=== PATIENT | male | born 1960 | race Caucasian/White ===

== ENCOUNTER 2020-10-21 08:46 | Emergency (ER) | payer MEDICAID, SELFPAY ==
[2020-10-21 08:55] VITALS: BP 162/75; PULSE 76; RESP 15; TEMP 36.6; O2SAT 96
--- NOTE | 2020-10-21 09:12 | ED.GENADUL_ITS ---
Discharge Plan Disposition Patient Disposition: HOME Condition: Stable Discharge Details Clinical Impression: Tick bite of buttock ED Provider: Enrique Juárez Home Meds and New Rx's Prescriptions: New doxycycline hyclate 100 mg capsule 100 mg PO BID Qty: 20 RF: 0 Discharge Instructions Instructions: Tick Bite (ED) Additional Instructions: At this time difficult to say whether this is a localized cellulitis versus early erythema migrans. Either way, we will treat you with doxycycline for the next 10 days, if your blood test results positive you may need to be placed on the doxycycline for a longer duration. [id number] medication such as Tylenol and/or Motrin for symptomatic control. Warm compresses every 2 hours for 20 minutes. Please watch for new or worsening symptoms and return to the ER for any concerns. Doxycycline it may cause some sun sensitivity, be sure to avoid direct sunlight, wear a hat, sunblock, etc. I am placing you on the care management list to help expedite outpatient primary care follow-up. Medical Decision Making 60-year-old gentleman presents status post a tick bite 16 days ago, now with a rash at the site of the bite. Clinically I am more suspicious of a localized cellulitis and a true erythema migrans rash. We discussed options. Will obtain a tickborne panel now and I will initiate 10 days worth of doxycycline which would cover for potential cellulitis versus tickborne disease. If his blood test results are positive he may need to extend his antibiotic therapy. There is no pointing abscess, nothing for emergent I&D at this time. Patient is comfortable with this plan and has no additional questions or concerns. HPI General Mode of arrival: ambulatory . Date/Time Provider Initiated Documentation: 10/21/20 08:48 . Limitations to Documentation: no limitations . Information obtained by: patient . HPI Narrative: This is a 60-year-old gentleman, denies significant past medical history, presenting for a tick bite. Patient states 16 days ago he noticed a tick bite, embedded, to his left buttocks. The tick was not engorged. He was able to pull the tick off without difficulty, unsure what type of tick it was. Today he noticed that at the site o f the bite the area it was slightly firm and red, minimally tender. He denies fever, myalgias, joint pains, rash elsewhere on his body. Patient states that he was bit by a tick a couple years ago and did receive a single dose of doxycycline. Patient is otherwise asymptomatic, has no additional questions or concerns. Related Data Home Medications Medication Instructions Recorded Confirmed doxycycline hyclate 100 mg PO BID #20 cap 10/21/20 Previous Rx's Medication Instructions Recorded doxycycline hyclate 100 mg PO BID #20 cap 10/21/20 General Stated Complaint: RashLesion NICKOLAS: 4 Review of Systems Constitutional Constitutional: Denies fever(s) and Denies weakness Cardiovascular Cardiovascular: Denies chest pain and Denies dyspnea Respiratory Respiratory: Denies dyspnea Musculoskeletal Musculoskeletal: Denies myalgias, Denies arthralgias, Denies numbness and Denies tingling Integumentary/Breasts Skin/Breast: Reports erythema Neurologic Neurologic: Denies numbness, Denies tingling and Denies weakness [facility] Social History Smoking/Tobacco Use Status: Never Smoking risk assessment performed?: Yes Substance use type: does not use Do you feel safe at home: Yes Do you feel safe in your relationship?: Yes Exam Const General: cooperative, healthy appearing, comfortable and no acute distress Orientation: alert and awake HENMT Head: normal to inspection, normocephalic and atraumatic Eyes General: appearance normal, both eyes and all related structures Conjunctivae: conjunctivae normal Neck Neck: normal visual inspection, trachea midline and supple Resp Effort & Inspection: normal respiratory effort and able to speak in complete sentences Cardio Rate: regular rate Rhythm: regular rhythm Skin Full body images: 1. There is a nickel sized area of macular erythema. Centrally there is a small amount of induration but no fluctuance or pointing abscess. No obvious foreign body. Sensation normal. Without drainage or tenderness. Neuro General: patient alert, patient awake, moves all extremities and no focal motor deficits Cognition: normal cognition Speech: speech normal Gait: normal gait Sensory Exam: no sensory deficits noted Psych Appearance: grossly normal Mental Status: mental status grossly normal Course Vital Signs Vital signs: Vital Signs Temperature 36.6 C 10/21/20 08:55 Pulse 76 10/21/20 08:55 Respiratory Rate 15 10/21/20 08:55 Blood Pressure 162/75 H 10/21/20 08:55 Pulse Oximetry 96 10/21/20 08:55 Temperature 36.6 C 10/21/20 08:55 Pulse 76 10/21/20 08:55 Respiratory Rate 15 10/21/20 08:55 Respiratory Effort Non-Labored 10/21/20 08:57 Blood Pressure 162/75 H 10/21/20 08:55 Pulse Oximetry 96 10/21/20 08:55 Oxygen Delivery Method Room Air 10/21/20 08:55 Oxygen Flow Rate 0 10/21/20 08:55 Pain Level 0 10/21/20 08:55
--- NOTE | 2020-10-21 09:22 | NUR.NOTE ---
Nursing Note: Referral given to Care Management to establish care with routine follow up with a PCP. Kim Dejesus
[2020-10-21] MEDS: Doxycycline Hyclate 100 MG CAP PO (09:31)
[2020-10-23 10:56] LABS: Lyme Ab w Rflx to Lyme Confirm Negative (Negative)
[2020-10-24 20:12] LABS: Anaplasma phagocytophilum Negative (Negative); B. miyamotoi PCR Negative (Negative); Babesia divergens/MO-1 Negative (Negative); Babesia duncani Negative (Negative); Babesia microti Negative (Negative); Ehrlichia chaffeensis Negative (Negative); Ehrlichia ewingii/canis Negative (Negative); Ehrlichia muris eauclairensis Negative (Negative)
== END 2020-10-21 09:35 | disposition home or self-care (01) ==
LOC: ER 09:36
PROVIDERS: Emergency Provider Physician Assistant
DX: S30.860A Insect bite (nonvenomous) of lower back and pelvis, initial encounter (principal); W57.XXXA Bitten or stung by nonvenomous insect and other nonvenomous arthropods, initial encounter
CPT/HCPCS: 36415; 87798; 99283; 86618

== ENCOUNTER 2021-02-08 15:01 | Outpatient (REF) | payer MEDICAID, SELFPAY ==
[2021-02-08 15:20] LABS: ALT 33 U/L (16-63); AST 25 U/L (15-37); Albumin 3.8 g/dL (3.4-5.0); Alkaline Phosphatase 69 U/L (46-116); Anion Gap 8.7 mmol/L (3-11); BUN 24 mg/dL (7-18); Bilirubin, Total 0.5 mg/dL (0.2-1.0); CO2 27.3 mmol/L (21.0-32.0); Calcium 8.9 mg/dL (8.5-10.1); Calculated LDL 111 mg/dL (<100); Chloride 107 mmol/L (98-107); Cholesterol 172 mg/dL (<200); Glucose 88 mg/dL (74-106); HDL Cholesterol 50 mg/dL (40-60); Potassium 4.7 mmol/L (3.5-5.1); Sodium 143 mmol/L (136-145); Total Protein 7.5 g/dL (6.4-8.2); Triglyceride 59 mg/dL (<150)
[2021-02-08 22:21] LABS: PSA, Screening 0.5 ng/mL (0.0-3.5)
== END 2021-02-08 15:02 | disposition home or self-care (01) ==
LOC: NCHCN 15:01
PROVIDERS: Visit Provider Physician Assistant
DX: Z00.00 Encounter for general adult medical examination without abnormal findings (principal)
CPT/HCPCS: 80053; 80061; 84153

== ENCOUNTER 2022-11-07 19:32 | Outpatient (CLI) | payer MEDICAID, SELFPAY ==
--- NOTE | 2022-11-07 19:30 | DI.RAD_ITS ---
Exam(s) XR CHEST 2V PA LATERAL EXAM: XR CHEST 2V PA LATERAL CLINICAL HISTORY: COUGH. TECHNIQUE: 2D digital imaging was performed. COMPARISON: No exams were available for comparison FINDINGS: 2 views: Heart size is normal. The mediastinum is not widened. Lungs are clear. No infiltrates nor pleural effusions. IMPRESSION: No acute pulmonary findings. DATA REPOSITORY: RADIATION DOSE DELIVERED:
--- NOTE | 2022-11-07 19:54 | DI.VRAD_ITS ---
PROCEDURE INFORMATION: Exam: XR Chest Exam date and time: 11/07/2022 19:34 Age: 62 years old Clinical indication: Cough TECHNIQUE: Imaging protocol: Radiologic exam of the chest. Views: 2 views. COMPARISON: No relevant prior studies available. FINDINGS: Lungs: No airspace consolidation. No significant interstitial disease for the degree of inflation. Crowding of interstitium on the lateral view. Pleural spaces: No pleural effusion. No pneumothorax. Heart/Mediastinum: No cardiomegaly. Bones/joints: No acute fracture. IMPRESSION: No acute cardiopulmonary pathology. Dictated and Authenticated by: Makeda Del Rio MD. Ordering:BESSIE Burrows MD
== END 2022-11-07 19:52 ==
PROVIDERS: Visit Provider Physician Assistant Medical
DX: R05.8 Other specified cough (principal)
CPT/HCPCS: 71046

== ENCOUNTER 2023-02-05 00:11 | Emergency (ER) | payer BC, SELFPAY ==
[2023-02-05 00:15] VITALS: BP 170/100; PULSE 75; RESP 14; TEMP 36.6; O2SAT 100
[2023-02-05 00:21] VITALS: BP 175/100; PULSE 75; RESP 14; TEMP 36.6; O2SAT 100
--- NOTE | 2023-02-05 00:26 | ED.GENADUL_ITS ---
Discharge Plan Disposition Patient Disposition: Home Condition: Stable Discharge Details Clinical Impression: Foreign body of left eye ED Provider: Todd aRe Home Meds and New Rx's Prescriptions: Continued omeprazole 40 mg Capsule,Delayed Release(Dr/Ec) 40 mg PO DAILY Discontinued doxycycline hyclate 100 mg capsule 100 mg PO BID Qty: 20 0RF Discharge Instructions Additional Instructions: Use the eye ointment 4 times a day for 5 days or until the container is empty follow up with [facility] if you feel more ill, have severe worsening pain or decrease in your vision return to the emergency department Medical Decision Making 62 yo male states earlier in the evening was grinding metal and felt something go into his eye, felt well but then started to hurt an hour or so later. Has been unable to sleep so came here. Denies vision changes, otherwise feels well. HE is caox4 on arrival speaking clearly. HE has erythematous left conjunctiva, normal appearing right eye, no periorbital swelling, perrl, eomi. He has a 1mm metal foreign body over the corneal margin at the 8 oclock position, no other foreign bodies seen and none under the eyelids. Vision 20/13 in the left eye. HE had immediate relief of pain with tetracaine. I attempted removal with cotton swab but was unable, then used an 18 gauge needle to gently remove the foreign body. On flourescein stain has 1mm corneal abrasion, no evidence of globe rupture. Will start on erythromycin and advised him to f/u with [facility] who he sees routinely for his glasses, return precautions given Differential Diagnosis Differential Diagnosis: foreign body, corneal abrasion HPI General Mode of arrival: ambulatory . Date/Time Provider Initiated Documentation: 02/05/23 00:11 . Limitations to Documentation: no limitations . Information obtained by: patient . History of Present Illness 62 year old M presents to the emergency department with the chief complaint of left eye pain, described as moderate, Quality is described as aching, and is localized to the eyes. Patient reports no radiation. Patient started experiencing this hour(s) (7) and it has been constant. No relieving factors improve symptom(s), No exacerbating factors reported . Patient notes no other symptoms.. Patient did receive the following treatments prior to arrival, none Related Data Home Medications Medication Instructions Recorded Confirmed omeprazole 40 mg capsule,delayed 40 mg PO DAILY 10/21/20 02/05/23 release Allergies Allergy/AdvReac Type Severity Reaction Status Date / Time No Known Allergies Allergy Unverified 10/21/20 09:27 General Stated Complaint: EyeProblem NICKOLAS: 3 Review of Systems All systems reviewed & are unremarkable except as noted in HPI and below Constitutional Constitutional: Denies chills, Denies fever(s) and Denies weakness Eyes Eyes: Denies loss of vision Cardiovascular Cardiovascular: Denies chest pain and Denies dyspnea Respiratory Respiratory: Denies cough and Denies dyspnea Gastrointestinal Gastrointestinal: Denies abdominal pain, Denies nausea and Denies vomiting Neurologic Neurologic: Denies loss of vision and Denies weakness PFSH All Active Problems (Updated 02/05/23 @ 00:44 by Todd Rae MD) Tick bite of buttock (Acute) Foreign body of left eye (Acute) Social History Smoking/Tobacco Use Status: Never Smoking risk assessment performed?: Yes Substance use type: does not use Housing: house Do you feel safe at home: Yes Do you feel safe in your relationship?: Yes Exam Const General: no acute distress Orientation: alert HENMT Head: normal to inspection Ears: external ears normal General nose exam: external nose normal Mouth: moist mucous membranes Eyes Alignment and Position: alignment normal Periorbital: periorbital findings normal Eyelids: eyelids normal Pupils: PERRL Neck Neck: normal visual inspection Resp Effort & Inspection: normal respiratory effort and able to speak in complete sentences Cardio Rate: regular rate Skin General skin exam: no rashes or lesions noted Neuro General: patient alert and patient oriented x3 Extrem General: normal to inspection Psych Mental Status: mental status grossly normal Course Vital Signs Vital signs: Vital Signs Temperature 36.6 C 02/05/23 00:15 Pulse 75 02/05/23 00:15 Respiratory Rate 14 02/05/23 00:15 Blood Pressure 170/100 H 02/05/23 00:15 Pulse Oximetry 100 02/05/23 00:15 Temperature 36.6 C 02/05/23 00:21 Temperature Source Oral 02/05/23 00:21 Pulse 75 02/05/23 00:21 Respiratory Rate 14 02/05/23 00:21 Respiratory Effort Normal, Non-Labored 02/05/23 00:19 Blood Pressure 175/100 H 02/05/23 00:21 Blood Pressure Position Sitting 02/05/23 00:21 Pulse Oximetry 100 02/05/23 00:21 Oxygen Delivery Method Room Air 02/05/23 00:21 Oxygen Flow Rate 0 02/05/23 00:15 Pain Level 3 02/05/23 00:15 Comment patient state he is more feeling discomfort more than pain 02/05/23 00:15 PAWSS Have you Been Recently Intoxicated or Drunk Within the Last 30 days?: No Have you Ever Experienced Previous Episodes of Alcohol Withdrawal?: No Have you ever Experienced Withdrawal Seizures?: No Have you ever Experienced Delirium Tremens(DT)s?: No Have you ever undergone Alcohol Rehabilitation Treatment (i.e, inpt ot outpatient treatment programs)?: No Have you ever Experienced Blackouts?: No Have you ever Combined Alcohol with other Downers within the last 90 days?: No Have you ever Combined Alcohol with any other Substance of Abuse during the last 90 days?: No Positive Blood Alcohol level on Presentation? [PCS.BAL]: No Evidence of Increased Autonomic Activity (i.e. HR>120, tremor, sweating, agitation, nausea)?: No Result: 0
[2023-02-05] MEDS: Balanced Salt Solution 15 ML BTL OP (01:01)
[2023-02-05] MEDS: Erythromycin Ophth Oint 3.5 GM TUBE OP (01:02)
== END 2023-02-05 01:10 | disposition home or self-care (01) ==
LOC: ER 00:59
PROVIDERS: Emergency Provider Emergency Medicine; PCP Physician Assistant
DX: T15.92XA Foreign body on external eye, part unspecified, left eye, initial encounter (principal); S30.860A Insect bite (nonvenomous) of lower back and pelvis, initial encounter; W31.1XXA Contact with metalworking machines, initial encounter
CPT/HCPCS: 65220; 99283